=== PATIENT | female | born 1970 | race Caucasian/White ===

== ENCOUNTER 2018-07-04 13:23 | Emergency (ER) | payer SELFPAY ==
--- NOTE | 2018-07-04 15:05 | EDPHYS ---
Physician Documentation [facility] Name: Radha Song Age: 47 yrs Sex: Female : 1970 Arrival Date: 07/04/2018 Time: 13:26 Bed 28 Private MD: ED Physician Davon Reyes HPI: 07/04 14:17 This 47 yrs old Female presents to ER via Ambulatory with complaints of Flu kb Symptoms. 14:17 The patient or guardian reports cough, that is intermittent, described as moderate, kb with no sputum, flu symptoms, low-grade fever, myalgias. Onset: The symptoms/episode began/occurred 1 week(s) ago. Severity of symptoms: At their worst the symptoms were moderate, in the emergency department the symptoms have improved, moderately. Modifying factors: The symptoms are alleviated by nothing, the symptoms are aggravated by nothing. Associated signs and symptoms: Pertinent positives: earache, fever, rhinorrhea, sore throat, Pertinent negatives: chest pain, diarrhea, nausea, vomiting. The patient has not experienced similar symptoms in the past. The patient has not recently seen a physician. 14:18 Pt reports she has had cough, congestion, intermittent fever, sore throat and ear pain kb for a week. Had amoxicillin at home so she has taken 500mg TID for 7 days, today is the last day. Reports her symptoms are getting better, but she was here with her family member so she thought she would be seen too.. Historical: - Allergies: 13:33 No Known Allergies; la1 - PMHx: 13:33 Hypertension; la1 - PSHx: 13:33 ; Tubal ligation; la1 - Immunization history:: Adult Immunizations up to date. - Social history:: Smoking status: Patient/guardian denies using tobacco. - Ebola Screening: : No symptoms or risks identified at this time. ROS: 14:16 Cardiovascular: Negative for chest pain, palpitations, and edema, Abdomen/GI: Negative kb for abdominal pain, nausea, vomiting, diarrhea, and constipation, Back: Negative for injury and pain, : Negative for injury, bleeding, discharge, and swelling, MS/Extremity: Negative for injury and deformity, Skin: Negative for injury, rash, and discoloration, Neuro: Negative for headache, weakness, numbness, tingling, and seizure. 14:16 Constitutional: Positive for body aches, chills, fatigue, fever, malaise, Negative for poor PO intake, weight loss. 14:16 ENT: Positive for rhinorrhea, sore throat. 14:16 Respiratory: Positive for cough, Negative for dyspnea on exertion, hemoptysis, orthopnea, pleurisy, shortness of breath, sputum production, wheezing. Exam: 14:17 Constitutional: This is a well developed, well nourished patient who is awake, alert, kb and in no acute distress. Head/Face: Normocephalic, atraumatic. ENT: Nares patent. No nasal discharge, no septal abnormalities noted. Tympanic membranes are normal and external auditory canals are clear. Oropharynx with no redness, swelling, or masses, exudates, or evidence of obstruction, uvula midline. Mucous membranes moist. Neck: Trachea midline, no thyromegaly or masses palpated, and no cervical lymphadenopathy. Supple, full range of motion without nuchal rigidity, or vertebral point tenderness. No Meningismus. Chest/axilla: Normal chest wall appearance and motion. Nontender with no deformity. No lesions are appreciated. Cardiovascular: Regular rate and rhythm with a normal S1 and S2. No gallops, murmurs, or rubs. Normal PMI, no JVD. No pulse deficits. Respiratory: Lungs have equal breath sounds bilaterally, clear to auscultation and percussion. No rales, rhonchi or wheezes noted. No increased work of breathing, no retractions or nasal flaring. Abdomen/GI: Soft, non-tender, with normal bowel sounds. No distension or tympany. No guarding or rebound. No evidence of tenderness throughout. Skin: Warm, dry with normal turgor. Normal color with no rashes, no lesions, and no evidence of cellulitis. MS/ Extremity: Pulses equal, no cyanosis. Neurovascular intact. Full, normal range of motion. Neuro: Awake and alert, GCS 15, oriented to person, place, time, and situation. Cranial nerves II-XII grossly intact. Motor strength 5/5 in all extremities. Sensory grossly intact. Cerebellar exam normal. Normal gait. Vital Signs: 13:34 Pulse 87; Resp 18; Temp 97.3; Pulse Ox 98% on R/A; Weight 127.01 kg; Height 5 ft. 3 in. la1 (160.02 cm); 13:35 BP 106 / 76; la1 14:40 BP 119 / 76; Pulse 78; Resp 16; Pulse Ox 97% on R/A; rv 15:29 BP 121 / 79; Pulse 86; Resp 16; Pulse Ox 100% on R/A; rv 13:34 Body Mass Index 49.60 (127.01 kg, 160.02 cm) la1 MDM: 13:58 Patient medically screened. kb 14:17 Data reviewed: vital signs, nurses notes. Data interpreted: Pulse oximetry: on room air kb is 98 %. Interpretation: normal. 15:04 Counseling: I had a detailed discussion with the patient and/or guardian regarding: the kb historical points, exam findings, and any diagnostic results supporting the discharge/admit diagnosis, lab results, the need for outpatient follow up, a family practitioner, to return to the emergency department if symptoms worsen or persist or if there are any questions or concerns that arise at home. 07/04 13:36 Order name: Flu; Complete Time: 14: la1 07/04 13:36 Order name: Strep; Complete Time: 14: la1 07/04 14:03 Order name: Throat Culture EDMS Administered Medications: No medications were administered Disposition: 15:33 Co-signature as Attending Physician, Davon Reyes MD I agree with the assessment and kdr plan of care. Disposition: 07/04/18 15:04 Discharged to Home. Impression: Acute upper respiratory infection, unspecified. - Condition is Stable. - Discharge Instructions: Upper Respiratory Infection, Adult, [id number]. - Medication Reconciliation Form, Thank You Letter, Antibiotic Education, Prescription Opioid Use form. - Follow up: Emergency Department; When: As needed; Reason: Worsening of condition. Follow up: Private Physician; When: 2 - 3 days; Reason: Recheck today's complaints, Continuance of care, Re-evaluation by your physician. Signatures: Dispatcher [employer] EDBailey Sutton, AQUILINO-Raulito ROLLE-Davon Clancy MD MD [facility] Farhat Atwood RN RN la1 Harish Rosales, ANTHONY RN rv Corrections: (The following items were deleted from the chart) 15:21 14:08 Chest Pa And Lat (2 Views)+RAD.RAD.[email or web address] ordered. EDAK EDMS 15:31 15:04 07/04/2018 15:04 Discharged to Home. Impression: Acute upper respiratory rv infection, unspecified. Condition is Stable. Forms are Medication Reconciliation Form, Thank You Letter, Antibiotic Education, Prescription Opioid Use. Follow up: Emergency Department; When: As needed; Reason: Worsening of condition. Follow up: Private Physician; When: 2 - 3 days; Reason: Recheck today's complaints, Continuance of care, Re-evaluation by your physician. kb
--- NOTE | 2018-07-04 15:05 | ER ---
Nurse's Notes [facility] Name: Radha Song Age: 47 yrs Sex: Female : 1970 Arrival Date: 07/04/2018 Time: 13:26 Bed 28 Private MD: Diagnosis: Acute upper respiratory infection, unspecified Presentation: 07/04 13:32 Presenting complaint: Patient states: I have had a bad cough, body aches, and sneezing la1 for the last week. Transition of care: patient was not received from another setting of care. Onset of symptoms was July 04, 2018. Risk Assessment: Do you want to hurt yourself or someone else? Patient reports no desire to harm self or others. Initial Sepsis Screen: Does the patient meet any 2 criteria? No. Patient's initial sepsis screen is negative. Does the patient have a suspected source of infection? No. Patient's initial sepsis screen is negative. Care prior to arrival: None. 13:32 Method Of Arrival: Ambulatory la1 13:32 Acuity: MARCELINA 3 la1 Historical: - Allergies: 13:33 No Known Allergies; la1 - PMHx: 13:33 Hypertension; la1 - PSHx: 13:33 ; Tubal ligation; la1 - Immunization history:: Adult Immunizations up to date. - Social history:: Smoking status: Patient/guardian denies using tobacco. - Ebola Screening: : No symptoms or risks identified at this time. Screenin:56 Abuse screen: Denies threats or abuse. Denies injuries from another. Nutritional rv screening: No deficits noted. Tuberculosis screening: No symptoms or risk factors identified. Fall Risk None identified. Assessment: 13:56 General: Appears in no apparent distress. comfortable, Behavior is calm, cooperative. rv Pain: Complains of pain in throat. Neuro: Level of Consciousness is awake, alert, obeys commands, Oriented to person, place, time, situation. Cardiovascular: Capillary refill < 3 seconds. Respiratory: Airway is patent. GI: No signs and/or symptoms were reported involving the gastrointestinal system. : No signs and/or symptoms were reported regarding the genitourinary system. EENT: No signs and/or symptoms were reported regarding the EENT system. Derm: Skin is intact. Musculoskeletal: No signs and/or symptoms reported regarding the musculoskeletal system. Vital Signs: 13:34 Pulse 87; Resp 18; Temp 97.3; Pulse Ox 98% on R/A; Weight 127.01 kg; Height 5 ft. 3 in. la1 (160.02 cm); 13:35 BP 106 / 76; la1 14:40 BP 119 / 76; Pulse 78; Resp 16; Pulse Ox 97% on R/A; rv 15:29 BP 121 / 79; Pulse 86; Resp 16; Pulse Ox 100% on R/A; rv 13:34 Body Mass Index 49.60 (127.01 kg, 160.02 cm) la1 ED Course: 13:26 Patient arrived in ED. rg4 13:32 Triage completed. la1 13:33 Arm band placed on left wrist. Antipyretics given from triage as ordered by an ER la1 provider. 13:57 Patient has correct armband on for positive identification. Bed in low position. Call rv light in reach. Side rails up X 1. Pulse ox on. NIBP on. 13:58 Bailey Beltrán FNP-C is PHCP. kb 13:58 Davon Reyes MD is Attending Physician. kb 15:29 No provider procedures requiring assistance completed. Patient did not have IV access rv during this emergency room visit. Administered Medications: No medications were administered Outcome: 15:04 Discharge ordered by . kb 15:30 Discharged to home ambulatory. rv 15:30 Condition: good 15:30 Discharge instructions given to (patient took off before signing the discharge papers.) 15:31 Patient left the ED. rv Signatures: Bailey Beltrán FNP-C FNP-Ckb Attema, Lee RN Lora Hebert rg Harish Rosales RN RN rv
== END 2018-07-04 15:31 | disposition home or self-care (01) ==
LOC: ER 13:23
DX: J06.9 Acute upper respiratory infection, unspecified (principal)
CPT/HCPCS: 87070; 87081; 87804; 99283